=== PATIENT | male | born 1975 | race American Indian/Alaskan Native ===

== ENCOUNTER 2017-04-25 08:43 | Outpatient (CLI) | payer OTHER ==
[2017-04-25] MEDS ORDERED: LEXISCAN IV ONE (10:29)
[2017-04-25 11:31] VITALS: BP 156/100
--- NOTE | 2017-04-26 03:20 | Treadmill Report ---
THALLIUM STRESS TEST LEFT VENTRICLE: Left ventricle is severely dilated. There is fairly homogeneous uptake of the tracer in all segments. No significant defects identified. Mild diaphragmatic attenuation artifact is noted. Gated analysis demonstrates severe left ventricular systolic dysfunction with ejection fraction calculated at 34%. CONCLUSION: Evidence of severe dilated cardiomyopathy, moderately severe left ventricular systolic dysfunction, ejection fraction 34%. The perfusion study demonstrates no significant ischemic defects, perhaps suggesting a nonischemic cardiomyopathy. Clinical correlation is recommended. JOB# [id number] CA/NTS
== END 2017-04-25 08:44 | disposition home or self-care (01) ==
LOC: CARD 08:43
PROVIDERS: ATTEND Internal Medicine Cardiovascular Disease
DX: I51.7 Cardiomegaly (principal); I27.2 Other secondary pulmonary hypertension; F17.200 Nicotine dependence, unspecified, uncomplicated
CPT/HCPCS: 78452; 93017; 93306; A9502; J2785